=== PATIENT | male | born 1960 | race African-American/Black ===

== ENCOUNTER 2019-10-31 09:33 | Observation (INO) ==
[2019-10-31] MEDS ORDERED: ASPIRIN 325 MG TABLET PO STA (10:22)
[2019-10-31] MEDS ORDERED: NITROGLYCERIN 2% OINT 1 INCH/GM PACK TOP STA (10:22)
[2019-10-31 10:34] LABS: Basophils # 0.1 10*3/uL (0.0-0.2); Basophils % 1.5 % (0.0-0.8); Eosinophils # 0.4 10*3/uL (0.0-0.87); Eosinophils % 4.9 % (0.00-10.9); Hemoglobin 16.4 GM/DL (14.0-18.0); Immature Granulocytes % 0.3 %; Immature Granulocytes Absolute 0.02 #; Lymphocytes # 2.3 10*3/uL (1.4-4.0); Lymphocytes % 31.7 % (21.2-54.2); Mean Corpuscular HGB Conc 34.9 GM/DL (32-36); Mean Corpuscular Volume 91.8 FL (87-102); Monocytes % 9.9 % (1.7-12.7); Neutrophils % 51.7 % (38.7-73.9); Platelet Count 245 T/CUMM (130-400); Red Blood Count 5.12 MC/CUMM (3.8-5.5); Red Cell Distribution Width 13.1 % (9.3-17.3); White Blood Count 7.3 T/CUMM (4-12)
[2019-10-31 10:41] LABS: PT Patient Result 10.4 SECS (9.6-12.2); Partial Thromboplastin Time 27.5 SECS (20.8-36.0)
[2019-10-31 10:52] LABS: Albumin 3.5 G/DL (3.4-5.0); Bilirubin,Total 0.6 MG/DL (0.2-1.0); Osmolality,Calculated 282.1 MOS/KG (273-304); Total Protein 7.7 G/DL (6.4-8.3)
[2019-10-31 12:36] LABS: Apearance,Urine CLEAR (Clear); Bilirubin,Urine Negative (Negative); Blood, Urine Negative (Negative); Glucose,Urine (UA) Negative (Negative); Hyaline Casts,Urine 4 /LPF (0-3); Ketones,Urine Negative (Negative); Mucus,Urine Occasional /LPF (Occasional); Nitrite,Urine Negative (Negative); Protein,Urine Negative; RBC,Urine 1 /HPF (0-4); Urine Color Colorless (Yellow); Urine Specific Gravity 1.005 (1.001-1.035); Urine Urobilinogen < 2.0 EU/DL (0.2-1.0); WBC,Urine <1 /HPF (0-6)
[2019-10-31 12:56] LABS: Barbiturates Screen,Urine Negative (Negative); Benzodiazepines Screen,Urine Negative (Negative); Cannabinoid Screen,Urine Negative (Negative); Opiate Screen,Urine Negative (Negative); Phencyclidine Screen,Urine Negative (Negative)
[2019-10-31] MEDS ORDERED: ACETAMINOPHEN 325 MG TABLET PO PRN (13:02)
[2019-10-31] MEDS ORDERED: ONDANSETRON 4 MG/2 ML VIAL IV PRN (13:02)
[2019-10-31] MEDS ORDERED: ALBUTEROL/IPRATROPIUM 3 ML NEB RESP TX PRN (13:07)
[2019-10-31] MEDS ORDERED: POTASSIUM CHLORIDE 20 MEQ TABLET PO PRN (13:10)
[2019-10-31] MEDS ORDERED: ENOXAPARIN 40 MG/0.4 ML SYRINGE SUBCUT SCH (13:30)
[2019-10-31] MEDS ORDERED: LOSARTAN 50 MG TABLET PO ONE (14:20)
[2019-10-31] MEDS ORDERED: FUROSEMIDE 20 MG/2 ML VIAL IV ONE (18:33)
[2019-10-31] MEDS ORDERED: amLODIPine 2.5 MG TABLET PO ONE (18:33)
[2019-10-31] MEDS ORDERED: carvediloL 25 MG TABLET PO SCH (21:00)
[2019-10-31] MEDS ORDERED: carvediloL 12.5 MG TABLET PO SCH (21:00)
[2019-10-31] MEDS: carvediloL 12.5 MG TABLET PO SCH (21:13)
[2019-11-01 05:38] LABS: Basophils # 0.1 10*3/uL (0.0-0.2); Basophils % 1.9 % (0.0-0.8); Eosinophils # 0.3 10*3/uL (0.0-0.87); Eosinophils % 4.6 % (0.00-10.9); Hematocrit 44.7 VOL% (42.0-52.0); Hemoglobin 15.6 GM/DL (14.0-18.0); Immature Granulocytes % 0.3 %; Immature Granulocytes Absolute 0.02 #; Lymphocytes # 2.3 10*3/uL (1.4-4.0); Lymphocytes % 32.8 % (21.2-54.2); Mean Corpuscular HGB Conc 34.9 GM/DL (32-36); Mean Platelet Volume 11.3 FL (9.6-12.0); Monocytes % 11.3 % (1.7-12.7); Neutrophils % 49.1 % (38.7-73.9); Platelet Count 240 T/CUMM (130-400); Red Blood Count 4.91 MC/CUMM (3.8-5.5); Red Cell Distribution Width 13.1 % (9.3-17.3); White Blood Count 6.9 T/CUMM (4-12)
[2019-11-01 05:48] LABS: Calcium 9.3 MG/DL (8.5-10.1); Osmolality,Calculated 277.5 MOS/KG (273-304)
[2019-11-01 05:54] LABS: Calcium 9.3 MG/DL (8.5-10.1); Osmolality,Calculated 277.5 MOS/KG (273-304); Risk Ratio 2.18; Thyroid Stimulating Hormone 1.5 uIU/ml (0.358-3.74); VLDL CHOLESTEROL 12.6 MG/DL
[2019-11-01] MEDS ORDERED: POTASSIUM CHLORIDE 20 MEQ TABLET PO ONE ×2 (07:45→10:51)
[2019-11-01 08:08] VITALS: BP 105/72
[2019-11-01] MEDS ORDERED: LOSARTAN/HCTZ 50-12.5 MG TABLET PO SCH (09:00)
[2019-11-01] MEDS ORDERED: PANTOPRAZOLE 40 MG TABLET PO SCH (09:00)
[2019-11-01] MEDS ORDERED: amLODIPine 5 MG TABLET PO SCH (09:00)
[2019-11-01] MEDS ORDERED: LOSARTAN 50 MG TABLET PO SCH (09:00)
[2019-11-01] MEDS ORDERED: ASPIRIN EC 81 MG TABLET PO SCH (09:00)
[2019-11-01] MEDS ORDERED: hydroCHLOROthiazide 12.5 MG CAPSULE PO SCH (09:00)
[2019-11-01] MEDS ORDERED: FUROSEMIDE 20 MG TABLET PO SCH (09:00)
[2019-11-01] MEDS: carvediloL 12.5 MG TABLET PO SCH (09:33)
== END 2019-11-01 12:14 | disposition home or self-care (01) ==
LOC: N.EDINP 09:33 → N.ED 09:33 → N.2W 14:34
PROVIDERS: ADMIT Internal Medicine; ATTEND Internal Medicine